=== PATIENT | female | born 1955 | race Caucasian/White ===

== ENCOUNTER 2018-02-09 17:29 | Emergency (ER) | payer OTHER ==
[~2018-02-09] VITALS: Ht 160 cm; Wt 59.0 kg
[2018-02-09 22:02] VITALS: BP 140/92
== END 2018-02-09 22:02 | disposition home or self-care (01) ==
LOC: ED 17:29
DX: S01.01XA Laceration without foreign body of scalp, initial encounter (principal); M48.02 Spinal stenosis, cervical region; F79 Unspecified intellectual disabilities; W05.0XXA Fall from non-moving wheelchair, initial encounter; Y93.89 Activity, other specified; Y92.89 Other specified places as the place of occurrence of the external cause; Y99.8 Other external cause status
CPT/HCPCS: J1885; J2001

== ENCOUNTER 2018-02-11 13:00 | Emergency (ER) | payer OTHER ==
[2018-02-11 16:08] VITALS: BP 119/78
== END 2018-02-11 16:08 | disposition home or self-care (01) ==
LOC: ED 13:00
DX: S01.01XD Laceration without foreign body of scalp, subsequent encounter (principal); X58.XXXD Exposure to other specified factors, subsequent encounter

== ENCOUNTER 2018-02-16 12:44 | Emergency (ER) | payer OTHER ==
[~2018-02-16] VITALS: Ht 157.5 cm; Wt 59.0 kg
[2018-02-16 12:56] VITALS: BP 109/74; Ht 157.5 cm; Wt 59.0 kg
== END 2018-02-16 13:47 | disposition home or self-care (01) ==
LOC: ED 12:44
DX: S01.01XD Laceration without foreign body of scalp, subsequent encounter (principal); F79 Unspecified intellectual disabilities; W22.8XXD Striking against or struck by other objects, subsequent encounter
CPT/HCPCS: 90715

== ENCOUNTER 2018-12-11 10:02 | Inpatient (IN) | payer OTHER ==
[~2018-12-11] VITALS: Ht 157.5 cm; Wt 63.5 kg
[2018-12-11 10:15] VITALS: Ht 157.5 cm; Wt 63.5 kg
--- NOTE | 2018-12-11 11:13 | NUR ---
RM 15 C/O: LA PAIN W/SWELLING & REDNESS. FROM BUG BITE AT [facility]. SEEN BY DR. MENON.QUILL WINDER STATES PT IS DEVELOPMENTLY DELAYED, HAS SEIZURE DISORDER.
--- NOTE | 2018-12-11 12:07 | NUR ---
PER DR TOLENTINO, WRONG ORDER FOR ABG.
[2018-12-11 12:23] LABS: PLATELET COUNT 341 x10^3mcL (130-400)
[2018-12-11 12:26] LABS: BASOPHIL % 0 % (0-2)
--- NOTE | 2018-12-11 12:31 | NUR ---
LABS WITH BC AND LACTIC ACID DRAWN BY PHLEB. 20G IV PLACED TO RAC, FLUSHED WITH 5CC NS, DRESSING PLACED. MEDICATED PER MD ORDERS. ROCEPHIN INFUSING WITH NO S/SX OF INFECTION AT THIS TIME.
--- NOTE | 2018-12-11 12:32 | NUR ---
XR AT BEDSIDE.
[2018-12-11 12:51] LABS: CK-MB 0.6 ng/mL (0-3.6)
[2018-12-11 13:08] LABS: CALCIUM 8.3 mg/dL (8.5-10.1); CARBON DIOXIDE 25.3 mmol/L (21-32); CHLORIDE SERUM 93 mmol/L (98-107); CREATININE SERUM 0.7 mg/dL (0.6-1.0); GFR1 > 60 mL/min; GLUCOSE SERUM 122 mg/dL (74-106); POTASSIUM SERUM 3.4 mmol/L (3.5-5.1); SODIUM SERUM 126 mmol/L (136-145)
[2018-12-11 13:23] LABS: ALKALINE PHOSPHATASE 106 U/L (46-116); ALT/SGPT 19 U/L (14-59); AST/SGOT 17 U/L (15-37); BILIRUBIN TOTAL 0.5 mg/dL (0.20-1.00); TOTAL PROTEIN, SERUM 6.6 g/dL (6.4-8.2)
--- NOTE | 2018-12-11 13:34 | NUR ---
ULTRASOUND IN PROGRESS. PT NOTIFIED OF NEED FOR SPECIMEN.
--- NOTE | 2018-12-11 16:35 | NUR ---
CAREGIVER HAS GONE. NO COPY OF HOME MEDS AVAILABLE. UNABLE TO COMPLETE MED REC.
[2018-12-11 17:21] LABS: microscopic required? YES; urine erythrocyte TRACE (NEGATIVE)
[2018-12-11 17:31] LABS: AMPHETAMINE QUAL UR NONE DETECTED (See below)
[2018-12-11 18:08] VITALS: BP 109/77
[2018-12-11] MEDS ORDERED: CITALOPRAM HYDR20 M1 PO (18:23)
[2018-12-11] MEDS ORDERED: KEPPRA1000 M1 PO (18:23)
[2018-12-11] MEDS ORDERED: TRILEPTAL600 MG PO (18:24)
[2018-12-11] MEDS ORDERED: NATURE'S BLEND500 M3 PO (18:24)
[2018-12-11] MEDS ORDERED: RESTORIL15 MG PO (18:25)
[2018-12-11] MEDS ORDERED: QUDEXY XR150 MG PO (18:26)
[2018-12-11] MEDS ORDERED: PHARMASSURE VI500 MG PO (18:27)
[2018-12-11] MEDS ORDERED: VITAMIN D50000 I4 PO (18:28)
[2018-12-11 21:06] VITALS: BP 135/69
--- NOTE | 2018-12-12 05:09 | NUR ---
Patient alert, oriented x 4, some developemental delays, but able to communicate needs and wants. Calm, friendly demeanor, speech somewhat garbled, but able to understand patient. No complaits at this time. Lying in bed on back, awake, bed in low position, side rails up x 3, call light within reach.
[2018-12-12 05:13] VITALS: BP 99/48
[2018-12-12 06:23] LABS: BASOPHIL % 0.2 % (0-2); RED CELL DISTRIBUTION WIDTH 13.4 % (11.5-14.5)
[2018-12-12 06:30] LABS: CALCIUM 7.7 mg/dL (8.5-10.1); CARBON DIOXIDE 23.3 mmol/L (21-32); CHLORIDE SERUM 101 mmol/L (98-107); CREATININE SERUM 0.6 mg/dL (0.6-1.0); GFR1 > 60 mL/min; GLUCOSE SERUM 83 mg/dL (74-106); MAGNESIUM 1.8 mg/dL (1.8-2.4); PHOSPHOROUS 3.2 mg/dL (2.5-4.9); POTASSIUM SERUM 3.6 mmol/L (3.5-5.1); SODIUM SERUM 132 mmol/L (136-145)
[2018-12-12 07:57] LABS: PLATELET COUNT 248 x10^3mcL (130-400)
--- NOTE | 2018-12-12 08:01 | NUR ---
Patient awake and alert. Lying in bed. Resp even and non-labored. NAD noted. No c/o pain discomfort. Siderails up, call light within reach.
[2018-12-12 09:21] VITALS: BP 84/43
--- NOTE | 2018-12-12 11:19 | NUR ---
PER PRIMARY RN'S REQUEST AND PT.AGREES WITH ASSESSMENT TO LEFT UPPER EXTREMITY. NO OPEN ACTIVE WOUND, WARM AND SWELLING ,REDNESS HAS SBUSIDE FROM THE SKIN MARKED AREA, ANTICUBITAL AREA 2X3CM CONTACT DERMATITIS SKIN INTACT, CLEAN WITH NS, APPLY VESATEL DRESSING TO PREVENT SCRATCHING. PT. VERBALIZES UNDERSTANDING BUT NEED REINFORCEMENT.
[2018-12-12 16:50] VITALS: BP 82/45
--- NOTE | 2018-12-12 18:46 | NUR ---
Condition remains stable. Lying in bed with eyes closed. Resp even and non-labored. NAD noted. No pain discomfort noted. Siderails up, call light within reach.
[2018-12-12 20:30] VITALS: BP 95/56
--- NOTE | 2018-12-13 02:31 | NUR ---
PATIENT ALERT AND ORIENTED X 4, LYING IN BED ON BACK WITH HEAD UNDER COVERS AWAKE, ABLE TO COMMUNICATE NEEDS/WANTS. REQUESTED PAIN MEDICINE FOR PAIN TO LEFT ARM. ADMINISTERED PRN NORCO. LEFT ARM REMAINS SWOLLEN WITH BANDAGE IN THE AC AREA, COOL TO TOUCH, PAINFUL TO TOUCH. RADIAL PULSES PALPABLE. PATIENT REQUESTED ALL LIGHTS BE TURNED OUT SO SHE COULD SLEEP. LIGHTS TURNED OFF, BED IN LOW POSITION, SIDE RAILS UP X 3, CALL LIGHT WITHIN REACH.
[2018-12-13 05:40] VITALS: BP 103/59
[2018-12-13 06:39] LABS: CALCIUM 7.7 mg/dL (8.5-10.1); CHLORIDE SERUM 102 mmol/L (98-107); CREATININE SERUM 0.5 mg/dL (0.6-1.0); GFR1 > 60 mL/min; GLUCOSE SERUM 84 mg/dL (74-106); MAGNESIUM 1.8 mg/dL (1.8-2.4); PHOSPHOROUS 3.1 mg/dL (2.5-4.9); PLATELET COUNT 258 x10^3mcL (130-400); POTASSIUM SERUM 3.8 mmol/L (3.5-5.1); RED CELL DISTRIBUTION WIDTH 13.3 % (11.5-14.5); SODIUM SERUM 133 mmol/L (136-145)
--- NOTE | 2018-12-13 07:30 | NUR ---
RECEIVED PT FROM MANGANESE BREAKER. PT AWAKE, ALERT A/OX4 WITH HX OF DEVEOPMENTAL DELAY. SOME SPEECH INCOMPREHENSIBLE AT TIMES. PT ON ROOM AIR WITH NO RESP DISTRESS NOTED. IV ACCESS RAC CDI INFUSING NS AT 80ML/HR. PERIPHERAL PULSES PALPABLE, PT WITH LEFT ARM EDEMA. ACTIVE BS NOTED. PT INCOTINENT OF URINE. PT REPORTS PAIN TO LEFT ARM, TOLERABLE AT THIS TIME. PT HAS DEFORMITY OF BOTH FEET. SAFETY MEASURES IN PLACE, BED LOW AND LOCKED. CALL LIGHT WITHIN REACH.
--- NOTE | 2018-12-13 09:00 | NUR ---
PT IV TO RAC PULLED OUT, NO BLEEDING OR EDEMA NOTED. NEW IV STARTED TO RFA 22G INFUSES WELL. PT TOLERATED WELL. DUE MEDS ADMINISTERED. (SEE EMAR). PT CLEANED OF URINE AND REPOSITIONED AT THIS TIME. SAFETY MAINTAINED.
[2018-12-13 09:37] VITALS: BP 117/65
--- NOTE | 2018-12-13 10:42 | NUR ---
CHANGED AND CLEANED PT WITH FINANCIAL REPORTING ANALYST. PT REPORTS PAIN TO RIGHT FOOT. PT NOTED TO HAVE REDNESS AND WARMTH TO RIGHT ANKLE AREA. NEHEMIAS Dodd NP AWARE. PT LEFT ARM ELEVATED ON PILLOW AT THIS TIME ORDERED.
--- NOTE | 2018-12-13 12:01 | NUR ---
SPOKE WITH DAVONTE RODRIGUEZ (TRUCK RENTAL CLERK) FROM [facility] AT [phone]. PER CASE MANAGEMENT, OK TO SHARE INFORMATION THIS IS WHERE PT IS FROM. UPDATED TRUCK RENTAL CLERK, NO DISCHARGE PLANS OF YET. PER DAVONTE IF HE CANNOT BE REACHED TO PLEASE CALL MIYA SIMMONS AT [phone].
--- NOTE | 2018-12-13 12:53 | NUR ---
PT INCONTINENT OF URINE. PT CLEANED AND REPOSITIONED. PT FINISHED LUNCH. DUE ANTIBIOTIC ADMINISTERED. LEFT ARM ELEVATED. SAFETY MAINTAINIED.
--- NOTE | 2018-12-13 13:14 | NUR ---
SPOKE WITH LAB REGARDING VANCO TROUGH 16.1. PER PHARMACY OK TO CONTINUE SAME DOSE.
[2018-12-13 14:12] LABS: BAND NEUTROPHIL 0 % (0-10); BASOPHIL 0 % (0-2); MONOCYTE 9 % (0-7); SEGMENTED NEUTROPHILS 71 % (37-75)
[2018-12-13 14:13] LABS: PLATELET MORPHOLOGY PLATELETS INCREASED; rbc morphology (normal/abnorm) ABNORMAL (NORMAL)
--- NOTE | 2018-12-13 14:52 | NUR ---
PT SLEEPING AT THIS TIME WITH NO DISCOMFORT NOTED. DUE ABX ADMINISTERED ORDERED (SEE EMAR). SAFETY MAINTAINED.
--- NOTE | 2018-12-13 18:01 | NUR ---
PT COMPLAINING OF PAIN TO LEFT ARM. PT UNABLE TO RATE ON PAIN SCALE DUE TO DEVELOPMENTALLY DISABLED. PT REQUESTING PAIN MEDICINE. NORCO ADMINISTERED ORDERED PRN. PT CHANGED AND REPOSITIONED. WILL CONTINUE TO MONITOR.
[2018-12-13 18:03] VITALS: BP 131/76
--- NOTE | 2018-12-13 18:35 | NUR ---
PT RESTING COMFORTABLY. PT REPORTS SHE IS "READY TO SLEEP TO GET READY FOR HER BROTHER'S VISIT TOMORROW". ALL NEEDS TENDED TO THROUGHOUT SHIFT. WILL CONTINUE TO MONITOR AND ENDORSE CARE TO TRAVEL JOURNALIST.
--- NOTE | 2018-12-13 19:50 | NUR ---
RECEIVED REPORT FROM DAY SHIFT NURSE, ANGELO LOMAX. PT IS AAOX4. SPEECH CAN BE GARBLED (BASELINE) AT TIMES. DENIES EISENBERG. DENIES CP. L PACEMAKER. PULSES ARE PALPABLE. L ARM IS EDEMATOUS AND HAS REDNES, ELEVATED ON PILLOW. PT C/O OF PAIN ON L ARM. WAS PREVIOUSLY MEDICATED WITH NORCO AT 1759. BREATHING IS EVEN AND UNLABORED ON RA. LUNG SOUNDS CTA. DENIES SOB. ABD IS SOFT AND NONDISTENDED. BS ACTIVE IN ALL 4Q. INCONTINENT. CHANGED FRQ. DEFORMITY OF BOTH FEET, WHEELCHAIR BASELINE. R FOOT IS WARM TO TOUCH AND HAS REDNESS. WILL MAKE DR AWARE. IV TO SUNITA DRY, INTACT, AND PATENT. NO ERYTHEMA NOTED. BED IN LOWEST POSITION. CALL LIGHT WITHIN REACH. WILL CONTINUE TO MONITOR.
--- NOTE | 2018-12-13 20:10 | NUR ---
DR HEDRICK MADE AWARE OF THE REDNESS AND WARMTH ON PTS RIGHT FOOT. STATED SHE WILL COME SEE THE PT.
[2018-12-13 20:13] VITALS: BP 94/52
--- NOTE | 2018-12-13 21:31 | NUR ---
ROUTINE MEDICATIONS WERE GIVEN AND TOLERATED WELL. NO ACUTE DISTRESS NOTED. BREATHING IS EVEN AND UNLABORED ON RA. DENIES SOB. DENIES PAIN AT THIS TIME. DR. HEDRICK ORDERED BENADRYL CREAM FOR PTS FOOT, UNAVAILABLE IN PHARMACY. WILL MAKE AWARE. LINEN AND GOWN CHANGED AT THIS TIME. BED IN LOWEST POSITION. CALL LIGHT WITHIN REACH. WILL CONTINUE TO MONITOR.
--- NOTE | 2018-12-13 22:58 | NUR ---
PT IS RESTING COMFORTABLY WITH EYES CLOSED, BUT EASILY AROUSABLE WHEN SPOKEN TO. BREATHING IS EVEN AND UNLABORED ON RA. NO SIGNS OF RESP. DISTRESS. BED IN LOWEST POSITION. CALL LIGHT WITHIN REACH. WILL CONTINUE TO MONITOR.
--- NOTE | 2018-12-14 01:45 | NUR ---
PT IS RESTING IN BED COMFORTABLY, EASILY AROUSABLE WHEN SPOKEN TO. DENIES PAIN AT THIS TIME. BREATHING IS EVEN AND UNLABORED ON RA. NO SIGNS OF RESP DISTRESS. BED IN LOWEST POSITION. CALL LIGHT WITHIN REACH. WILL CONTINUE TO MONITOR.
[2018-12-14 05:38] VITALS: BP 91/52
--- NOTE | 2018-12-14 05:40 | NUR ---
PT SLEPT IN LONG INTERVALS THROUGHOUT THE SHIFT AND COMPLIED WITH NURSING CARE WITH NO ACUTE EVENTS OVERNIGHT. COMFORT AND SAFETY MEASURES MAINTAINED. ALL NEEDS ASSESSED AND ATTENDED TO. WILL CONTINUE TO MONITOR AND ENDORSE CARE TO DAY SHIFT NURSE.
[2018-12-14 06:05] LABS: CALCIUM 7.9 mg/dL (8.5-10.1); CARBON DIOXIDE 25.5 mmol/L (21-32); CHLORIDE SERUM 102 mmol/L (98-107); CREATININE SERUM 0.4 mg/dL (0.6-1.0); GFR1 > 60 mL/min; GLUCOSE SERUM 90 mg/dL (74-106); POTASSIUM SERUM 3.9 mmol/L (3.5-5.1); SODIUM SERUM 134 mmol/L (136-145)
[2018-12-14 06:45] LABS: BASOPHIL % 0.6 % (0-2); RED CELL DISTRIBUTION WIDTH 12.4 % (11.5-14.5)
[2018-12-14 06:56] LABS: PLATELET COUNT 275 x10^3mcL (130-400)
--- NOTE | 2018-12-14 07:30 | NUR ---
SEEN IN BED WATCHING TV, NO RESP DISTRESS NOTED. HX OF MENTALLY DELAYED. SLOW SPEECH, ABLE TO TELL NAME, BIRTHDATE, STATED IN THE HOSPITAL BUT DOES NOT KNOW THE NAME OF IT, STATED TODAY IS Sunday. STATED MILD PAIN TO LEFT ARM, NOTED SWELLING, REDNESS SUBSIDE FROM SKIN MARKED, KEPT ELEVATED ON PILLOWS. GEN BODY WEAKNESS. ABLE TO FEED SELF. IVF TO RFA NS INFUSING WELL. INCONTINENCE AT TIMES. WHEELCHAIR BOUND. CONTRACTED TO BOTH FEET, ABLE TO MOVE LEFT FOOT BETTER THAN RIGHT FOOT. SCD TO BLE INPLACED. CALL LIGHT PLACED WITHIN EASY REACH. SIDERAILS UP X2.
--- NOTE | 2018-12-14 07:38 | NUR ---
ENDORSED CARE TO DAY SHIFT NURSE, LONI LOMAX.
[2018-12-14 08:29] VITALS: BP 148/86
[2018-12-14 08:43] VITALS: BP 148/86
--- NOTE | 2018-12-14 09:54 | NUR ---
AM SCHEDULEDS MEDS GIVEN. ABLE TO SWALLOW ALL THE MORNING PILLS AT ONE WITHOUT ANY DIFFICULTY NOTED. PLEASANT. STATED WAITING FOR HER BROTHER TO VISIT. CALL LIGHT REINSTRUCTED AND PLACED WITHIN EASY REACH. SIDERAILS UP X2.
[2018-12-14] MEDS ORDERED: CLEOCIN HCL150 MG PO (10:49)
--- NOTE | 2018-12-14 12:30 | NUR ---
STATED DID NOT LIKE THE CHICKEN, NOTED FINISHED 50% OF LUNCH. DENIES NAUSEA. LEFT ARM PHOTO TAKEN. MADE AWARE OF DISCHARGE HOME ORDER.
--- NOTE | 2018-12-14 13:55 | NUR ---
PATIENT'S BROTHER AT BEDSIDE MADE AWARE OF PATIENT BEING DISCHARGED BACK TO [facility]. DISCHARGE INSTRUCTION GIVEN TO PATIENT'S BROTHER WHO IS AWAKE, ALERT, ORIENTED X4. S/L TO RT ARM WITH CATHETER INTACT, NO ERYTHEMA OR SWELLING TO SITE, DRSG APPLIED. NEW DIAPER INPLACE. ALL BELONGINGS CHECKED AND KEPT WITH PATIENT. BROUGHT VIA WHEELCHAIR ASSISTED BY AIRPORT SECURITY SCREENER TO [facility]. PATIENT'S CARE TAKERS FROM [facility] WAITING AT THE [facility].
== END 2018-12-14 14:00 | DRG 603 ==
LOC: ED 10:02 → MU 15:56
PROVIDERS: Specialist; ADMIT Internal Medicine
DX: L03.114 Cellulitis of left upper limb (principal); E87.1 Hypo-osmolality and hyponatremia; N39.0 Urinary tract infection, site not specified; E87.6 Hypokalemia; E87.8 Other disorders of electrolyte and fluid balance, not elsewhere classified; G40.909 Epilepsy, unspecified, not intractable, without status epilepticus; F79 Unspecified intellectual disabilities; F32.9 Major depressive disorder, single episode, unspecified; Z97.8 Presence of other specified devices; Z68.25 Body mass index [BMI] 25.0-25.9, adult
CPT/HCPCS: G0378; J0690; J0696; J1200; J2270; J3370; J7030; J7060; Q0092

== ENCOUNTER 2019-04-02 14:30 | Inpatient (IN) | payer OTHER ==
[~2019-04-02] VITALS: Ht 157.5 cm; Wt 56.7 kg
[~2019-04-02 14:30] MED LIST: CITALOPRAM HYDR20 M1 PO; CLEOCIN HCL150 MG PO; KEPPRA1000 M1 PO; NATURE'S BLEND500 M3 PO; PHARMASSURE VI500 MG PO; QUDEXY XR150 MG PO; RESTORIL15 MG PO; TRILEPTAL600 MG PO; VITAMIN D50000 I4 PO
[2019-04-02 14:44] VITALS: Ht 157.5 cm; Wt 56.7 kg
[2019-04-02 16:18] LABS: CALCIUM 8.2 mg/dL (8.5-10.1); CHLORIDE SERUM 103 mmol/L (98-107); CREATININE SERUM 0.6 mg/dL (0.6-1.0); GFR1 > 60 mL/min; GLUCOSE SERUM 99 mg/dL (74-106); POTASSIUM SERUM 3.6 mmol/L (3.5-5.1); SODIUM SERUM 137 mmol/L (136-145)
[2019-04-02 16:21] LABS: BASOPHIL % 0.4 % (0-2); PLATELET COUNT 477 x10^3mcL (130-400); RED CELL DISTRIBUTION WIDTH 15.4 % (11.5-14.5)
[2019-04-02 16:23] LABS: ALKALINE PHOSPHATASE 83 U/L (46-116); ALT/SGPT 23 U/L (14-59); AST/SGOT 18 U/L (15-37); BILIRUBIN TOTAL 0.8 mg/dL (0.20-1.00); TOTAL PROTEIN, SERUM 6.5 g/dL (6.4-8.2)
[2019-04-02 17:14] LABS: IRON 63 ug/dL (50-170)
[2019-04-02 17:15] LABS: TOTAL IRON BINDING CAPACITY 190 ug/dL (250-450)
[2019-04-02 17:38] LABS: RED BLOOD CELLS 2.63 M/mm3 (4.10-5.10)
[2019-04-02 18:37] VITALS: BP 107/61
[2019-04-02 21:23] VITALS: BP 103/56
[2019-04-03 05:45] VITALS: BP 100/53
[2019-04-03 05:56] LABS: microscopic required? NO
[2019-04-03 08:04] LABS: CALCIUM 7.9 mg/dL (8.5-10.1); CARBON DIOXIDE 24.4 mmol/L (21-32); CHLORIDE SERUM 106 mmol/L (98-107); CREATININE SERUM 0.5 mg/dL (0.6-1.0); GFR1 > 60 mL/min; GLUCOSE SERUM 91 mg/dL (74-106); POTASSIUM SERUM 3.7 mmol/L (3.5-5.1); SODIUM SERUM 138 mmol/L (136-145)
[2019-04-03 08:22] VITALS: BP 92/49
[2019-04-03 10:13] LABS: BASOPHIL % 0.4 % (0-2)
[2019-04-03 10:17] LABS: PLATELET COUNT 449 x10^3mcL (130-400); RED CELL DISTRIBUTION WIDTH 15.5 % (11.5-14.5)
[2019-04-03 10:22] LABS: UA SPECIFIC GRAVITY 1.015 (1.005-1.035); urine erythrocyte NEGATIVE (NEGATIVE)
[2019-04-03 12:21] VITALS: BP 94/50
[2019-04-03 16:25] VITALS: BP 101/59
[2019-04-03 21:56] VITALS: BP 90/45
[2019-04-03 23:32] VITALS: BP 95/52
[2019-04-04 06:00] VITALS: BP 91/59
[2019-04-04 06:53] LABS: BASOPHIL % 0.2 % (0-2); PLATELET COUNT 195 x10^3mcL (130-400); RED CELL DISTRIBUTION WIDTH 12.5 % (11.5-14.5)
[2019-04-04 07:36] LABS: CARBON DIOXIDE 25.2 mmol/L (21-32); CHLORIDE SERUM 106 mmol/L (98-107); CREATININE SERUM 0.5 mg/dL (0.6-1.0); GFR1 > 60 mL/min; GLUCOSE SERUM 90 mg/dL (74-106); POTASSIUM SERUM 4.1 mmol/L (3.5-5.1); SODIUM SERUM 137 mmol/L (136-145)
[2019-04-04 08:04] VITALS: BP 96/51
[2019-04-04 13:34] VITALS: BP 99/48
[2019-04-04 17:55] VITALS: BP 100/45
[2019-04-04 19:18] VITALS: BP 83/48
[2019-04-05 05:16] VITALS: BP 85/49
[2019-04-05 06:55] LABS: BASOPHIL % 0.4 % (0-2); PLATELET COUNT 383 x10^3mcL (130-400)
[2019-04-05 07:09] LABS: CALCIUM 7.8 mg/dL (8.5-10.1); CARBON DIOXIDE 24.6 mmol/L (21-32); CHLORIDE SERUM 106 mmol/L (98-107); CREATININE SERUM 0.6 mg/dL (0.6-1.0); GFR1 > 60 mL/min; GLUCOSE SERUM 101 mg/dL (74-106); POTASSIUM SERUM 4.2 mmol/L (3.5-5.1); SODIUM SERUM 137 mmol/L (136-145)
[2019-04-05 07:10] LABS: RED CELL DISTRIBUTION WIDTH 17.2 % (11.5-14.5)
[2019-04-05 08:57] VITALS: BP 97/54
[2019-04-05 12:06] VITALS: BP 102/59
[2019-04-05 16:21] VITALS: BP 112/71
[2019-04-05 19:12] VITALS: BP 98/56
[2019-04-06 04:28] VITALS: BP 115/68
[2019-04-06 06:46] LABS: BASOPHIL % 0.5 % (0-2); PLATELET COUNT 385 x10^3mcL (130-400)
[2019-04-06 07:02] LABS: CARBON DIOXIDE 22.3 mmol/L (21-32); CHLORIDE SERUM 106 mmol/L (98-107); CREATININE SERUM 0.5 mg/dL (0.6-1.0); GFR1 > 60 mL/min; GLUCOSE SERUM 110 mg/dL (74-106); POTASSIUM SERUM 3.6 mmol/L (3.5-5.1); SODIUM SERUM 137 mmol/L (136-145)
[2019-04-06 07:04] LABS: RED CELL DISTRIBUTION WIDTH 18.5 % (11.5-14.5)
[2019-04-06 08:08] VITALS: BP 108/64
[2019-04-06 12:12] VITALS: BP 96/55
[2019-04-06 16:59] VITALS: BP 97/71
[2019-04-06 19:09] VITALS: BP 99/56
[2019-04-07 04:00] VITALS: BP 110/70
[2019-04-07 09:19] VITALS: BP 101/64
[2019-04-07 18:18] VITALS: BP 102/64
[2019-04-07 18:56] VITALS: BP 102/64
== END 2019-04-07 18:30 | DRG 482 ==
LOC: ED 14:30 → MU 16:21
PROVIDERS: Emergency Medicine; Neuromusculoskeletal Medicine, Sports Medicine; ADMIT Internal Medicine
PROC: 30233N1 Transfusion of Nonautologous Red Blood Cells into Peripheral Vein, Percutaneous Approach (ICD-10-PCS; 2019-04-03)
PROC: 0QSB04Z Reposition Right Lower Femur with Internal Fixation Device, Open Approach (ICD-10-PCS; principal; 2019-04-04 09:00)
DX: S72.451A Displaced supracondylar fracture without intracondylar extension of lower end of right femur, initial encounter for closed fracture (principal); F32.9 Major depressive disorder, single episode, unspecified; E55.9 Vitamin D deficiency, unspecified; K58.9 Irritable bowel syndrome, unspecified; G40.909 Epilepsy, unspecified, not intractable, without status epilepticus; I12.9 Hypertensive chronic kidney disease with stage 1 through stage 4 chronic kidney disease, or unspecified chronic kidney disease; N18.9 Chronic kidney disease, unspecified; E11.22 Type 2 diabetes mellitus with diabetic chronic kidney disease; I25.10 Atherosclerotic heart disease of native coronary artery without angina pectoris; F79 Unspecified intellectual disabilities; J45.909 Unspecified asthma, uncomplicated; M19.90 Unspecified osteoarthritis, unspecified site; D64.9 Anemia, unspecified; Z68.23 Body mass index [BMI] 23.0-23.9, adult; Z86.73 Personal history of transient ischemic attack (TIA), and cerebral infarction without residual deficits; W05.0XXA Fall from non-moving wheelchair, initial encounter; Y92.018 Other place in single-family (private) house as the place of occurrence of the external cause
CPT/HCPCS: 97110-GP; 97530-GP; G0378; J0690; J1170; J1644; J1885; J2250; J2270; J2405; J2704; J3010; J3490; J7040; J7050; J7120; P9016; Q0092